=== PATIENT | female | born 1950 | race African-American/Black ===

== ENCOUNTER 2023-07-21 07:46 | Inpatient (IN) | payer MEDICARE, OTHER ==
[~2023-07-21] VITALS: Ht 162.6 cm; Wt 46.7 kg
[~2023-07-21 07:46] MED LIST: AMLO-213 PO; ESCI10TA PO; GABA-532 PO; LOSA50TA39 PO; METO25TA4 PO; ROSU10TA29 PO
[2023-07-21 08:17] LABS: BASOPHILS # (AUTO) 0.1 K/uL (0.0-0.2); BASOPHILS % (AUTO) 0.5 % (0.0-2.0); EOSINOPHILS # (AUTO) 0.1 K/uL (0.0-0.7); EOSINOPHILS % (AUTO) 0.8 % (0.0-6.0); HEMATOCRIT 38 % (33-45); HEMOGLOBIN 12.7 g/dL (11.5-14.8); LYMPHOCYTES # (AUTO) 2.6 K/uL (0.8-4.8); LYMPHOCYTES % (AUTO) 25.4 % (20.0-44.0); MEAN CORPUSCULAR HEMOGLOBIN 28 PG (26.0-33.0); MEAN CORPUSCULAR HGB CONC 34 g/dl (31.0-36.0); MEAN CORPUSCULAR VOLUME 84 fL (82-100); MONOCYTES # (AUTO) 0.8 K/uL (0.1-1.30); MONOCYTES % (AUTO) 7.6 % (2.0-12.0); NEUTROPHILS # (AUTO) 6.8 K/uL (1.8-8.9); NEUTROPHILS % (AUTO) 65.7 % (43.0-81.0); PLATELET COUNT (AUTO) 154 K/uL (150-450); RED BLOOD CELL COUNT(AUTO) 4.46 MIL/uL (4.0-5.2); RED CELL DISTRIBUTION WIDTH 13.3 % (11.5-15.0); WHITE BLOOD COUNT (AUTO) 10.4 K/uL (4.3-11.0)
[2023-07-21 08:28] LABS: SERUM AMMONIA 13 umol/L (11-32)
[2023-07-21] MEDS ORDERED: IV NS 0.9% 1,000 ML BAG IV ONE (08:30)
[2023-07-21 08:33] LABS: ALANINE AMINOTRANSFERASE 13 U/L (12-78); ALCOHOL, BLOOD < 3 mg/dL (0-10); ALKALINE PHOSPHATASE 110 U/L (46-116); ASPARTATE AMINOTRANSFERASE 14 U/L (15-37); BILIRUBIN,DIRECT 0.3 mg/dL (0.0-0.2); BILIRUBIN,TOTAL 0.9 mg/dL (0.2-1.0); CALCIUM, SERUM 9.8 mg/dL (8.5-10.1); CARBON DIOXIDE 20 mmol/L (21-32); CHLORIDE 109 mmol/L (98-107); CREATININE 1.1 mg/dL (0.6-1.3); GLUCOSE 179 mg/dL (74-106); SODIUM SERUM 148 mmol/L (136-145); TOTAL PROTEIN, SERUM 7.7 g/dL (6.4-8.2); UREA NITROGEN, BLOOD 10 mg/dL (7-18)
[2023-07-21 08:40] LABS: THYROID STIMULATING HORMONE 1.024 uIU/mL (0.358-3.74)
[2023-07-21 08:44] LABS: ACETAMINOPHEN <10 ug/ml (10-30)
[2023-07-21 08:45] LABS: POTASSIUM 2.8 mmol/L (3.5-5.1)
[2023-07-21] MEDS ORDERED: HYDR25TA4 PO (09:17)
[2023-07-21] MEDS ORDERED: OLAN2.5T3 PO (09:17)
[2023-07-21] MEDS ORDERED: POTASSIUM CL. PREMIX PERIPHER. 50 ML ONE ×3 (09:18→12:03)
[2023-07-21] MEDS: POTASSIUM CL. PREMIX PERIPHER. 50 ML IV SCH ×4 (09:34→13:24)
[2023-07-21 09:41] LABS: APPEARANCE,URINE SLIGHTLY CLOUDY (CLEAR); BILIRUBIN,URINE 2+ (NEGATIVE); BLOOD, URINE TRACE-INTA Ery/uL (NEGATIVE); COLOR,URINE YELLOW (YELLOW); KETONES,URINE 3+ mg/dL (NEGATIVE); LEUKOCYTE ESTERASE ,URINE NEGATIVE (NEGATIVE); NITRITE, URINE NEGATIVE (NEGATIVE); PROTEIN,URINE 1+ mg/dl (NEGATIVE); UGLUCOSE NEGATIVE (NEGATIVE)
[2023-07-21 09:55] LABS: AMPHETAMINE, URINE NEGATIVE (NEGATIVE); BARBITURATE, URINE NEGATIVE (NEGATIVE); BENZODIAZEPINE, URINE NEGATIVE (NEGATIVE); CANNABINOID, URINE NEGATIVE (NEGATIVE); COCCAINE, URINE NEGATIVE (NEGATIVE); OPIATE, URINE NEGATIVE (NEGATIVE); PHENCYCLIDINE SCREEN,URINE NEGATIVE (NEGATIVE)
[2023-07-21 11:35] LABS: ADD URINE CULTURE NO; BACTERIA,URINE Few /HPF (None Seen); RBC,URINE 0-2 /HPF (0-2); SQUAMOUS EPITHELIAL CELL,UR Few /HPF (None Seen)
[2023-07-21 13:00] VITALS: BP 122/91; TEMP 97.5; O2SAT 99
[2023-07-21] MEDS ORDERED: ONDANSETRON HCL/PF 4 MG/2 ML VIAL IVP PRN (13:00)
[2023-07-21] MEDS ORDERED: MAGNESIUM HYDROXIDE 30 ML UDC PO PRN (13:00)
[2023-07-21] MEDS ORDERED: MAG HYDROX/AL HYDROX/SIMETH 30 ML UDC PO PRN (13:00)
[2023-07-21] MEDS ORDERED: IV NS 0.9% 1,000 ML IV PRN (13:00)
[2023-07-21] MEDS ORDERED: ZOLPIDEM TARTRATE 5 MG TABLET PO PRN (13:00)
[2023-07-21] MEDS ORDERED: Z GUARD REMEDY 4 OZ OINT TP PRN (13:00)
[2023-07-21] MEDS ORDERED: ACETAMINOPHEN 325 MG TABLET PO PRN (13:00)
[2023-07-21] MEDS: ENOXAPARIN SODIUM 40 MG/0.4 ML DISP.SYRIN SQ SCH (13:52)
[2023-07-21] MEDS: ATORVASTATIN 40 MG TABLET PO SCH (18:00)
[2023-07-21 20:05] VITALS: BP 130/82; TEMP 98.8; O2SAT 99
[2023-07-21] MEDS: GABAPENTIN 100 MG CAPSULE PO SCH (22:00)
[2023-07-22 04:00] VITALS: BP 136/83; TEMP 98.1; O2SAT 99
[2023-07-22 07:05] LABS: BASOPHILS % (AUTO) 0.4 % (0.0-2.0); EOSINOPHILS # (AUTO) 0.1 K/uL (0.0-0.7); EOSINOPHILS % (AUTO) 1.2 % (0.0-6.0); HEMATOCRIT 36 % (33-45); HEMOGLOBIN 12.1 g/dL (11.5-14.8); LYMPHOCYTES # (AUTO) 1.8 K/uL (0.8-4.8); LYMPHOCYTES % (AUTO) 20.8 % (20.0-44.0); MEAN CORPUSCULAR HEMOGLOBIN 29 PG (26.0-33.0); MEAN CORPUSCULAR HGB CONC 34 g/dl (31.0-36.0); MEAN CORPUSCULAR VOLUME 85 fL (82-100); MONOCYTES # (AUTO) 0.7 K/uL (0.1-1.30); MONOCYTES % (AUTO) 7.4 % (2.0-12.0); NEUTROPHILS # (AUTO) 6.2 K/uL (1.8-8.9); NEUTROPHILS % (AUTO) 70.2 % (43.0-81.0); PLATELET COUNT (AUTO) 132 K/uL (150-450); RED CELL DISTRIBUTION WIDTH 13.3 % (11.5-15.0); WHITE BLOOD COUNT (AUTO) 8.8 K/uL (4.3-11.0)
[2023-07-22 07:34] LABS: CALCIUM, SERUM 9.6 mg/dL (8.5-10.1); CARBON DIOXIDE 22 mmol/L (21-32); CHLORIDE 113 mmol/L (98-107); CREATININE 0.9 mg/dL (0.6-1.3); GLUCOSE 93 mg/dL (74-106); MAGNESIUM 1.8 mg/dL (1.8-2.4); PHOSPHORUS 2.8 mg/dL (2.5-4.9); SODIUM SERUM 149 mmol/L (136-145); UREA NITROGEN, BLOOD 5 mg/dL (7-18)
[2023-07-22 08:31] LABS: THYROID STIMULATING HORMONE 1.356 uIU/mL (0.358-3.74)
[2023-07-22] MEDS: LOSARTAN POTASSIUM 50 MG TABLET PO SCH (09:00)
[2023-07-22] MEDS: METOPROLOL SUCCINATE 25 MG TAB.SR.24H PO SCH (09:00)
[2023-07-22] MEDS: AMLODIPINE BESYLATE 10 MG TABLET PO SCH (09:00)
[2023-07-22] MEDS ORDERED: OLANZAPINE 2.5 MG TABLET PO SCH (09:00)
[2023-07-22] MEDS: PANTOPRAZOLE 40 MG VIAL IV SCH (09:56)
[2023-07-22] MEDS: ENOXAPARIN SODIUM 40 MG/0.4 ML DISP.SYRIN SQ SCH (09:58)
[2023-07-22] MEDS ORDERED: IV 1/2NS 1000 ML 1,000 ML IV ONE (10:00)
[2023-07-22 12:15] VITALS: BP 124/90; TEMP 99; O2SAT 99
[2023-07-22] MEDS: OLANZAPINE 2.5 MG TABLET PO SCH (16:50)
[2023-07-22] MEDS: ATORVASTATIN 40 MG TABLET PO SCH (17:18)
[2023-07-22 20:00] VITALS: BP 127/79; TEMP 98.2; O2SAT 99
[2023-07-22] MEDS: GABAPENTIN 100 MG CAPSULE PO SCH (21:58)
[2023-07-23 04:00] VITALS: BP 119/62; TEMP 98.2; O2SAT 99
[2023-07-23 06:57] LABS: BASOPHILS % (AUTO) 0.3 % (0.0-2.0); EOSINOPHILS # (AUTO) 0.1 K/uL (0.0-0.7); EOSINOPHILS % (AUTO) 0.8 % (0.0-6.0); HEMATOCRIT 37 % (33-45); HEMOGLOBIN 12.6 g/dL (11.5-14.8); LYMPHOCYTES # (AUTO) 1.6 K/uL (0.8-4.8); LYMPHOCYTES % (AUTO) 17.6 % (20.0-44.0); MEAN CORPUSCULAR HEMOGLOBIN 29 PG (26.0-33.0); MEAN CORPUSCULAR HGB CONC 34 g/dl (31.0-36.0); MEAN CORPUSCULAR VOLUME 85 fL (82-100); MONOCYTES # (AUTO) 0.8 K/uL (0.1-1.30); MONOCYTES % (AUTO) 8.7 % (2.0-12.0); NEUTROPHILS # (AUTO) 6.8 K/uL (1.8-8.9); NEUTROPHILS % (AUTO) 72.6 % (43.0-81.0); PLATELET COUNT (AUTO) 126 K/uL (150-450); RED BLOOD CELL COUNT(AUTO) 4.38 MIL/uL (4.0-5.2); RED CELL DISTRIBUTION WIDTH 13.3 % (11.5-15.0); WHITE BLOOD COUNT (AUTO) 9.4 K/uL (4.3-11.0)
[2023-07-23 07:10] LABS: CALCIUM, SERUM 9.7 mg/dL (8.5-10.1); CHLORIDE 107 mmol/L (98-107); CREATININE 0.9 mg/dL (0.6-1.3); GLUCOSE 82 mg/dL (74-106); MAGNESIUM 1.8 mg/dL (1.8-2.4); SODIUM SERUM 145 mmol/L (136-145)
[2023-07-23 07:46] LABS: CARBON DIOXIDE 17 mmol/L (21-32); UREA NITROGEN, BLOOD 6 mg/dL (7-18)
[2023-07-23] MEDS: METOPROLOL SUCCINATE 25 MG TAB.SR.24H PO SCH (10:17)
[2023-07-23] MEDS: AMLODIPINE BESYLATE 10 MG TABLET PO SCH (10:17)
[2023-07-23] MEDS: OLANZAPINE 2.5 MG TABLET PO SCH (10:18)
[2023-07-23] MEDS: LOSARTAN POTASSIUM 50 MG TABLET PO SCH (10:18)
[2023-07-23] MEDS: PANTOPRAZOLE 40 MG VIAL IV SCH (10:19)
[2023-07-23] MEDS: ENOXAPARIN SODIUM 40 MG/0.4 ML DISP.SYRIN SQ SCH (10:24)
[2023-07-23] MEDS: POTASSIUM CHLORIDE 20 MEQ TAB.PRT.SR PO SCH ×3 (11:21→14:23)
[2023-07-23 12:00] VITALS: BP 139/78; TEMP 98.2; O2SAT 99
[2023-07-23] MEDS ORDERED: LORAZEPAM 0.5 MG TABLET PO PRN (13:00)
[2023-07-23 16:23] VITALS: BP 129/82; TEMP 98.2; O2SAT 97
[2023-07-23] MEDS: ENSURE ENLIVE 237 ML LIQUID (VANILLA) PO SCH (16:45)
[2023-07-23] MEDS: ATORVASTATIN 40 MG TABLET PO SCH (17:51)
[2023-07-23 20:00] VITALS: BP 98/80; TEMP 98; O2SAT 100
[2023-07-23] MEDS: GABAPENTIN 100 MG CAPSULE PO SCH (22:04)
[2023-07-24 04:00] VITALS: BP 108/84; TEMP 99; O2SAT 98
[2023-07-24 07:20] LABS: BASOPHILS % (AUTO) 0.3 % (0.0-2.0); EOSINOPHILS # (AUTO) 0.1 K/uL (0.0-0.7); EOSINOPHILS % (AUTO) 1.6 % (0.0-6.0); HEMATOCRIT 35 % (33-45); HEMOGLOBIN 11.9 g/dL (11.5-14.8); LYMPHOCYTES # (AUTO) 1.4 K/uL (0.8-4.8); LYMPHOCYTES % (AUTO) 19.8 % (20.0-44.0); MEAN CORPUSCULAR HEMOGLOBIN 29 PG (26.0-33.0); MEAN CORPUSCULAR HGB CONC 34 g/dl (31.0-36.0); MEAN CORPUSCULAR VOLUME 84 fL (82-100); MONOCYTES # (AUTO) 0.6 K/uL (0.1-1.30); MONOCYTES % (AUTO) 8.3 % (2.0-12.0); PLATELET COUNT (AUTO) 126 K/uL (150-450); RED BLOOD CELL COUNT(AUTO) 4.17 MIL/uL (4.0-5.2); RED CELL DISTRIBUTION WIDTH 13.5 % (11.5-15.0); WHITE BLOOD COUNT (AUTO) 7.1 K/uL (4.3-11.0)
[2023-07-24 07:42] LABS: CALCIUM, SERUM 9.9 mg/dL (8.5-10.1); CREATININE 1.1 mg/dL (0.6-1.3); MAGNESIUM 1.7 mg/dL (1.8-2.4); PHOSPHORUS 2.5 mg/dL (2.5-4.9); POTASSIUM 3.6 mmol/L (3.5-5.1)
[2023-07-24] MEDS: ENSURE ENLIVE 237 ML LIQUID (VANILLA) PO SCH ×3 (08:30→16:28)
[2023-07-24] MEDS: PANTOPRAZOLE 40 MG TABLET.DR PO SCH (08:31)
[2023-07-24] MEDS: OLANZAPINE 2.5 MG TABLET PO SCH (08:32)
[2023-07-24] MEDS: AMLODIPINE BESYLATE 10 MG TABLET PO SCH (08:32)
[2023-07-24] MEDS: LOSARTAN POTASSIUM 50 MG TABLET PO SCH (08:32)
[2023-07-24] MEDS: ENOXAPARIN SODIUM 40 MG/0.4 ML DISP.SYRIN SQ SCH (08:33)
[2023-07-24] MEDS: METOPROLOL SUCCINATE 25 MG TAB.SR.24H PO SCH (08:33)
[2023-07-24] MEDS ORDERED: MAGNESIUM OXIDE 400 MG TABLET PO ONE (10:30)
[2023-07-24 12:00] VITALS: BP 137/82; TEMP 98.9; O2SAT 98
[2023-07-24] MEDS: ATORVASTATIN 40 MG TABLET PO SCH (17:14)
[2023-07-24 20:00] VITALS: BP 132/88; TEMP 98.2; O2SAT 98
[2023-07-24] MEDS ORDERED: MIRTAZAPINE 15 MG TABLET PO SCH (22:00)
[2023-07-24] MEDS: GABAPENTIN 100 MG CAPSULE PO SCH (22:56)
[2023-07-25 04:00] VITALS: BP 125/87; TEMP 98.2; O2SAT 98
[2023-07-25 07:19] LABS: BASOPHILS % (AUTO) 0.4 % (0.0-2.0); EOSINOPHILS # (AUTO) 0.2 K/uL (0.0-0.7); HEMATOCRIT 37 % (33-45); HEMOGLOBIN 12.4 g/dL (11.5-14.8); LYMPHOCYTES # (AUTO) 1.9 K/uL (0.8-4.8); LYMPHOCYTES % (AUTO) 24.2 % (20.0-44.0); MEAN CORPUSCULAR HEMOGLOBIN 29 PG (26.0-33.0); MEAN CORPUSCULAR HGB CONC 34 g/dl (31.0-36.0); MEAN CORPUSCULAR VOLUME 85 fL (82-100); MONOCYTES # (AUTO) 0.7 K/uL (0.1-1.30); MONOCYTES % (AUTO) 8.8 % (2.0-12.0); NEUTROPHILS % (AUTO) 64.6 % (43.0-81.0); PLATELET COUNT (AUTO) 111 K/uL (150-450); RED BLOOD CELL COUNT(AUTO) 4.31 MIL/uL (4.0-5.2); RED CELL DISTRIBUTION WIDTH 13.4 % (11.5-15.0); WHITE BLOOD COUNT (AUTO) 7.8 K/uL (4.3-11.0)
[2023-07-25 08:00] VITALS: BP 127/83; TEMP 98.1; O2SAT 99
[2023-07-25] MEDS: ENSURE ENLIVE 237 ML LIQUID (VANILLA) PO SCH ×2 (08:00→12:17)
[2023-07-25 08:39] LABS: CALCIUM, SERUM 9.9 mg/dL (8.5-10.1); CREATININE 0.8 mg/dL (0.6-1.3); MAGNESIUM 1.9 mg/dL (1.8-2.4); PHOSPHORUS 3.8 mg/dL (2.5-4.9); POTASSIUM 3.5 mmol/L (3.5-5.1)
[2023-07-25] MEDS: OLANZAPINE 2.5 MG TABLET PO SCH (09:30)
[2023-07-25] MEDS: ENOXAPARIN SODIUM 40 MG/0.4 ML DISP.SYRIN SQ SCH (09:30)
[2023-07-25 09:31] VITALS: BP 127/83
[2023-07-25] MEDS: AMLODIPINE BESYLATE 10 MG TABLET PO SCH (09:31)
[2023-07-25] MEDS: METOPROLOL SUCCINATE 25 MG TAB.SR.24H PO SCH (09:31)
[2023-07-25] MEDS: LOSARTAN POTASSIUM 50 MG TABLET PO SCH (09:31)
[2023-07-25] MEDS: PANTOPRAZOLE 40 MG TABLET.DR PO SCH (09:31)
[2023-07-25] MEDS ORDERED: MIRT-121 PO (12:02)
[2023-07-25] MEDS ORDERED: Lorazepam PO (12:02)
== END 2023-07-25 14:33 | DRG 641 ==
LOC: ER 07:49 → TELE1 12:38 → MEDSG1 13:06
PROVIDERS: ADMIT Student in an Organized Health Care Education/Training Program; ATTEND Student in an Organized Health Care Education/Training Program
DX: E86.0 Dehydration (principal); G93.40 Encephalopathy, unspecified; F33.3 Major depressive disorder, recurrent, severe with psychotic symptoms; N39.0 Urinary tract infection, site not specified; E87.0 Hyperosmolality and hypernatremia; F41.9 Anxiety disorder, unspecified; E87.6 Hypokalemia; Z20.822 Contact with and (suspected) exposure to COVID-19; Z88.1 Allergy status to other antibiotic agents; E78.5 Hyperlipidemia, unspecified; Z79.899 Other long term (current) drug therapy; I10 Essential (primary) hypertension; Z91.148 Patient's other noncompliance with medication regimen for other reason; F29 Unspecified psychosis not due to a substance or known physiological condition; F03.90 Unspecified dementia, unspecified severity, without behavioral disturbance, psychotic disturbance, mood disturbance, and anxiety; R79.89 Other specified abnormal findings of blood chemistry
CPT/HCPCS: 36415; 70450-TC; 71045-TC; 80048-TC; 80076-TC; 81001; 82140-TC; 83735-TC; 84100-TC; 84443-TC; 84484-TC; 85025-TC; 87086-TC; 92526; 92611-TC; 97110-TC; 97116-TC; 97530-TC; A4223; C9113; G0378; G0480; J1650; J3480; J7030; J7040; J7050